=== PATIENT | female | born 2000 | race Caucasian/White ===

== ENCOUNTER 2019-05-14 14:52 | Inpatient (IN) | payer OTHER ==
[~2019-05-14] VITALS: Ht 157.5 cm; Wt 66.0 kg
[2019-05-14] VITALS (10 sets, daily range): BP systolic 100–144; BP diastolic 58–93
[2019-05-14] MEDS ORDERED: PRENTAB9 PO (16:02)
[2019-05-14] MEDS ORDERED: LR 1,000 ML IV SCH (16:17)
[2019-05-14] MEDS ORDERED: LACTATED RINGER'S 1000 ML IV STA (16:17)
--- NOTE | 2019-05-14 16:46 | HPEPDOC ---
Obstetrical History & Physical General Date of Admission May 14, 2019 at 16:21 History of Present Illness 19yo G1 at 39w3d (LAQUITA 06Aug by 7wk US) presents c/o abominal tightening associated with upper and lower abd pain and pressure throughout the day. Will have intermittent pelvic pressure and shooting pelvic pain, initially releaved with BM but not contintuing. Denies vaginal bleeding, LOF. +FM. Denies MAST, vision changes, RUQ pain. 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 Past Medical History Medical History asthma, anxiety Surgical History: Denies/None Family History Significant Family History: No pertinent family hx Social History Marital Status: Psychosocial History: Anxiety * Smoker: non-smoker Alcohol: Denies Drugs: denies Abuse Violence Screening Have you been hit/kicked/slapp: No Have you been sexually assault: No Imunizations Tdap status: current Influenza Status: current Allergies Coded Allergies: Penicillins (Verified Allergy, Intermediate, HIVES AND SWELLING, 05/14/19) Medications Scheduled No.137/Iron/Folic Acd ( Vitamin Tablet) 1 Each Tablet, 1 TAB PO DAILY Physical Examination Physical Examination GENERAL: Alert and oriented times three. ABDOMEN: Gravid and non-tender to touch. FETUS: Is vertex (VTX) by sterile vaginal examination (SVE) EXTREMITIES: No edema. Pertinent Laboratoy Data Blood Type: A- RBC Antibody Screen: Negative HIV: Negative Hepatitis B: Negative Rapid Plasma Reagin: Nonreactive Rubella: Immune Varicella: Immune Chlamydia/Gonorrhea: Negative Group B Streptococcus: Negative Cystic Fibrosis: Negative Glucose Tolerance Test: 86 Anatomy Ultrasound Ultrasound Date: Dec 30, 2018 Placenta Location: Posterior Normal Anatomy: Yes Placenta Previa: No Estimated Weight (grams): 346 Steroid Therapy Steroid Therapy: No Vaginal Examination Dilation: 4 cm Effacement: 90% Station: -1 Cervical Consistency: Soft Cervical Position: Middle Presentation: Cephalic presentation Position: Vertex (occiput) Assessment Heart Rate (FHR): 120 Variability: Moderate Accelerations: Positive Decelerations: None Tocometer Contractions: Yes Frequency: regular, every 3-7 min. Duration: greater than 60 seconds Strength: palpated as moderate Multi-drug resistant Organism: No history of MDRO Assessment/Plan Assessment 19yo G1 at 39w3d (LAQUITA 06Aug by 7wk US) being admitted in latent labor with newly diagnosed GHTN. No e/o pre-e. Pt amenable to augmentation if needed for her GHTN. NST reactive, regular CTX. Cephalic by exam, EFW 3000g. GBS neg, A neg (received routine rhogam Jan). PMH asthma. Plan Admit and orient. Registered Sales Assistant and consent. Diet: clear liquid. Group B Streptococcus (GBS) negative. Labs and intravenous (IV) per unit protocol. Lactated Ringers (LR): at 125 mL/hr. Anticipate normal spontaneous delivery (). Pain control as desired MD MAGDIEL Ivy TONI M. MD May 14, 2019 16:46
[2019-05-14 17:12] LABS: HEMATOCRIT 34.7 % (36.0-47.0); HEMOGLOBIN 11.5 g/dl (12.0-15.5); MEAN CORPUSCULAR HGB CONC 33.1 g/dl (32.0-36.5); MEAN CORPUSCULAR VOLUME 84.6 fl (80.0-96.0); PLATELET COUNT, AUTOMATED 253 10^3/uL (150-450); WHITE BLOOD COUNT 12.8 10^3/uL (4.0-10.0)
[2019-05-14 17:39] LABS: ALT/SGPT 19 U/L (12-78); BILIRUBIN,TOTAL 0.4 MG/DL (0.2-1.0); CREATININE FOR GFR 0.77 MG/DL (0.55-1.30); LDH LACTATE DEHYDROGENASE 181 U/L (84-246); URIC ACID 4.2 MG/DL (2.6-6.0)
[2019-05-14 17:40] LABS: TOTAL PROTEIN,RANDOM URINE 48.8 MG/DL (0.0-12.0)
[2019-05-14] MEDS ORDERED: OXYTOCIN DRIP 30 UNITS in APPROPRIATE DILUENT 1 EA IV SCH (19:45)
[2019-05-14] MEDS ORDERED: FENTANYL 2MCG/ML ROPIVACAINE 0.2% IN 0.9% NACL 100ML IVBAG As Ordered ONE (23:55)
[2019-05-15] VITALS (23 sets, daily range): BP systolic 105–137; BP diastolic 55–90
[2019-05-15] MEDS ORDERED: REFRIGERATOR IV KEYS XX PRN (01:00)
[2019-05-15] MEDS ORDERED: NALOXONE INJ 0.4 MG/1 ML VIAL (J2310) IV PRN (01:00)
[2019-05-15] MEDS ORDERED: EPIDURAL/PCA KEYS XX PRN (01:00)
[2019-05-15] MEDS ORDERED: FENTANYL/ROPIVACAINE/NACL BAG 100 ML EPIDURAL SCH (01:00)
[2019-05-15] MEDS ORDERED: ONDANSETRON 4MG/2ML VIAL (J2405) IV PRN ×2 (01:00→03:00)
[2019-05-15] MEDS ORDERED: ePHEDrine SULFATE 25 MG/5 ML(5MG/ML) SYRINGE IV PRN (01:00)
[2019-05-15] MEDS ORDERED: diphenhydrAMINE INJ 50MG/ML VIAL (J1200) IV PRN (01:00)
[2019-05-15] MEDS ORDERED: EPIDURAL COMMENT XX SCH (01:00)
[2019-05-15] MEDS ORDERED: METHYLERGONOVINE MALEATE 0.2 MG TAB PO PRN (03:00)
[2019-05-15] MEDS ORDERED: DOCUSATE SODIUM 100 MG CAP PO PRN (03:00)
[2019-05-15] MEDS ORDERED: IBUPROFEN 600 MG TAB PO PRN (03:00)
[2019-05-15] MEDS ORDERED: ACETAMINOPHEN 500 MG TAB PO PRN (03:00)
[2019-05-15] MEDS ORDERED: OXYTOCIN DRIP 30 UNITS in APPROPRIATE DILUENT 1 EA IV ONE (03:00)
[2019-05-15] MEDS ORDERED: DIBUCAINE 1% OINTMENT 30GM TOP PRN (03:00)
[2019-05-15] MEDS ORDERED: RHOGAM 300 MCG (1500 IU) INJ (J2790) IM SCH (03:00)
[2019-05-15] MEDS ORDERED: ACETAMINOPHEN TAB 650MG DOSE (2X325MG) PO PRN (03:00)
[2019-05-15] MEDS ORDERED: MEASLES,MUMPS,RUBELLA VACCINE INJ (MMR-II) (90707) SC SCH (03:00)
[2019-05-15] MEDS: PRENATAL VITAMINS CHEWABLE TABLET PO SCH (08:18)
--- NOTE | 2019-05-15 11:42 | DN ---
DATE OF DELIVERY: 05/15/2019 PREDELIVERY DIAGNOSIS: 39 weeks gestation, labor. POSTDELIVERY DIAGNOSIS: Delivered. PROCEDURE: Spontaneous vaginal delivery. FITNESS CONSULTANT: Dr. Olegario Youssef ANESTHESIA: Epidural. ESTIMATED BLOOD LOSS: 300 mL. FINDINGS: 7 pound 14 ounce male , scores 8 and 9. DELIVERY SUMMARY: After 1 hour of second stage of labor, the patient spontaneously delivered a 7 pound 14 ounce male infant, scores 8 and 9, under epidural with anesthesia. There was no nuchal cord. The shoulders delivered with ease. The was handed to the mother. The cord was doubly clamped and cut. Placenta delivered spontaneously and appeared to be intact. The patient received intravenous (IV) Pitocin immediately after delivery of the placenta. There were no vaginal lacerations present. Sponge counts were correct.
[2019-05-15] MEDS: IBUPROFEN 800 MG TAB PO PRN (14:36)
[2019-05-16 06:00] VITALS: BP 106/72
--- NOTE | 2019-05-16 07:06 | IPNPDOC ---
Text Note Date of Service The patient was seen on 05/16/19. NOTE PPD1 status post uncomplicated spontaneous vaginal delivery at 39+3 wks yesterday morning, no delivery complications or lacerations. She has been ambulating, voiding spontaneously without issue and tolerating regular diet. Breast feeding well and bonding appropriately. Reports lochia is light. Denies any pain or concerns. VITAL SIGNS: Within normal limits, afebrile. Alert and oriented times three. Abdomen: Fundus firm at U-2. Soft, NTTP. A/P: 19 y/o G1 now P1001, PPD 1, stable and doing well. PLAN: 1. Likely d/c tomorrow AM. 2. Tylenol and Motrin for pain. 3. Encourage breast feeding on demand and ambulation. 4. Routine PP Care VS,Fishbone, I+O VS, Fishbone, I+O Vital Signs Date Time Temp Pulse Resp B/P (MAP) Pulse Ox O2 Delivery O2 Flow Rate FiO2 05/16/19 06:00 97.1 73 16 106/72 (83) 97 SESSIONS,TERI Bailey MD May 16, 2019 07:06
[2019-05-16] MEDS: PRENATAL VITAMINS CHEWABLE TABLET PO SCH (09:34)
[2019-05-16] MEDS: IBUPROFEN 800 MG TAB PO PRN ×2 (09:55→22:04)
[2019-05-16 18:00] VITALS: BP 115/67
--- NOTE | 2019-05-17 05:53 | IPNPDOC ---
Text Note Date of Service The patient was seen on 05/17/19. NOTE PPD1 status post uncomplicated spontaneous vaginal delivery at 39+3 wks yesterday morning, no delivery complications or lacerations. She has been ambulating, voiding spontaneously without issue and tolerating regular diet. Breast feeding well and bonding appropriately. Reports lochia is light. Denies any pain or concerns. VITAL SIGNS: Within normal limits, afebrile. Alert and oriented times three. Abdomen: Fundus firm at U-2. Soft, NTTP. A/P: 19 y/o G1 now P1001, PPD 1, stable and doing well. PLAN: 1. Likely d/c today 2. Lanolin Motrin for d/c meds. 3. Encourage breast feeding and ambulation. 4. Routine PP Care VS,Fishbone, I+O VS, Fishbone, I+O Vital Signs Date Time Temp Pulse Resp B/P (MAP) Pulse Ox O2 Delivery O2 Flow Rate FiO2 05/16/19 18:00 98.2 86 18 115/67 (83) 05/16/19 06:00 97 SESSIONS,TERI Bailey MD May 17, 2019 05:53
--- NOTE | 2019-05-17 06:01 | DS.PDOC ---
Discharge Summary General Date of Admission May 14, 2019 at 16:21 Date of Discharge [id number] Discharge Summary ADMITTING DIAGNOSES: PROM DISCHARGE DIAGNOSES: Same, HOSPITAL COURSE: Uncomplicated, labor. Uncomplicated . Uncomplicated course. DISCHARGE MEDICATIONS: Motrin/Lanolin/PNV INSTRUCTIONS/ACTIVITY: Nothing in the vagina for 6 weeks. DISCHARGE CONDITION: Stable Sessions Vital Signs/I&Os Vital Signs Date Time Temp Pulse Resp B/P (MAP) Pulse Ox O2 Delivery O2 Flow Rate FiO2 05/16/19 18:00 98.2 86 18 115/67 (83) 05/16/19 06:00 97 Discharge Medications Scheduled No.137/Iron/Folic Acd ( Vitamin Tablet) 1 Each Tablet, 1 TAB PO DAILY, (Reported) Allergies Coded Allergies: Penicillins (Verified Allergy, Intermediate, HIVES AND SWELLING, 05/14/19) RADHA,TERI Bailey MD May 17, 2019 06:01
[2019-05-17] MEDS ORDERED: ACET1TAB55 PO (06:02)
[2019-05-17] MEDS ORDERED: IBUP80TA PO (06:02)
[2019-05-17 06:25] VITALS: BP 109/55
[2019-05-17] MEDS: PRENATAL VITAMINS CHEWABLE TABLET PO SCH (08:33)
== END 2019-05-17 10:40 | disposition home or self-care (01) | DRG 807 ==
LOC: M LDO 14:52 → M LDI 16:21 → M OBS 05-15 05:05
PROVIDERS: ADMIT General Practice; ATTEND General Practice
PROC: 10E0XZZ Delivery of Products of Conception, External Approach (ICD-10-PCS; principal; 2019-05-15)
DX: O13.4 Gestational [pregnancy-induced] hypertension without significant proteinuria, complicating childbirth (principal); Z37.0 Single live birth; Z3A.39 39 weeks gestation of pregnancy

== ENCOUNTER 2019-12-25 15:55 | Emergency (ER) | payer OTHER ==
[~2019-12-25] VITALS: Ht 157.5 cm; Wt 55.4 kg
[~2019-12-25 15:55] MED LIST: ACET1TAB55 PO; IBUP80TA PO; PRENTAB9 PO
[2019-12-25 16:33] LABS: BASO # 0.1 10^3/uL (0.0-0.2); BASO % 0.8 % (0.0-1.0); EOS # 0.1 10^3/uL (0.0-0.5); HEMATOCRIT 39.2 % (36.0-47.0); LYMPH # 2.1 10^3/uL (1.5-5.0); MEAN CORPUSCULAR HEMOGLOBIN 29.5 pg (27.0-33.0); MEAN CORPUSCULAR HGB CONC 33.2 g/dl (32.0-36.5); MEAN CORPUSCULAR VOLUME 88.9 fl (80.0-96.0); MONO # 0.8 10^3/uL (0.0-0.8); MONO % 12.8 % (0.0-5.0); NEUTROPHILS # 3.1 10^3/uL (1.5-8.5); NEUTROPHILS % 50.2 % (36.0-66.0); PLATELET COUNT, AUTOMATED 231 10^3/uL (150-450); RED BLOOD COUNT 4.41 10^6/uL (4.00-5.40); WHITE BLOOD COUNT 6.2 10^3/uL (4.0-10.0)
[2019-12-25 16:58] LABS: ALBUMIN 3.7 GM/DL (3.2-5.2); ALT/SGPT 16 U/L (12-78); BILIRUBIN,DIRECT < 0.1 MG/DL (0.0-0.2); BILIRUBIN,TOTAL 0.2 MG/DL (0.2-1.0); BLOOD UREA NITROGEN 11 MG/DL (7-18); CALCIUM LEVEL 9.2 MG/DL (8.5-10.1); CARBON DIOXIDE LEVEL 30 MEQ/L (21-32); CHLORIDE LEVEL 108 MEQ/L (98-107); CREATININE FOR GFR 0.64 MG/DL (0.55-1.30); GLUCOSE, FASTING 74 MG/DL (70-100); LIPASE 115 U/L (73-393); POTASSIUM SERUM 3.5 MEQ/L (3.5-5.1); SODIUM LEVEL 141 MEQ/L (136-145); TOTAL PROTEIN 6.9 GM/DL (6.4-8.2)
[2019-12-25 17:23] LABS: APPEARANCE, URINE HAZY (CLEAR); BILIRUBIN, URINE AUTO NEGATIVE (NEGATIVE); BLOOD, URINE BLOOD NEGATIVE (NEGATIVE); COLOR, URINE YELLOW (YELLOW); GLUCOSE, URINE (UA) AUTO NEGATIVE (NEGATIVE); KETONE, URINE AUTO NEGATIVE (NEGATIVE); LEUKOCYTE ESTERASE, URINE AUTO NEGATIVE (NEGATIVE); NITRITE, URINE AUTO NEGATIVE (NEGATIVE); PROTEIN, URINE AUTO NEGATIVE (NEGATIVE); SPECIFIC GRAVITY URINE AUTO 1.023 (1.002-1.035); UROBILINOGEN, URINE AUTO 0.2 mg/dL (0.0-2.0)
[2019-12-25 17:24] LABS: BACTERIA, URINE AUTO 1+ (NEGATIVE); MUCUS, URINE SMALL (NEGATIVE); RBC, URINE AUTO 2 /HPF (0-3); SQUAMOUS EPITHELIAL CELL UR AU 6 /HPF (0-6); WBC, URINE AUTO 2 /HPF (0-3)
--- NOTE | 2019-12-25 17:56 | REPVR ---
PROCEDURE INFORMATION: Exam: US Pelvis Complete, Transabdominal and US Pelvis, Transvaginal and US Duplex Artery and Vein, Ovaries, Complete Exam date and time: 12/25/2019 5:42 PM Age: 19 years old Clinical indication: Pelvic pain; Additional info: Pelvic cramping TECHNIQUE: Imaging protocol: Real-time transabdominal and transvaginal pelvic ultrasound (complete) with image documentation. Transvaginal imaging was used for better evaluation of the endometrium and adnexa. Real-time duplex ultrasound scan of the arterial and venous flow of the ovaries with B-mode, color Doppler flow and spectral waveform analysis. COMPARISON: No relevant prior studies available. FINDINGS: Uterus/cervix: The anteverted uterus measures 7.8 x 3.4 x 5.4 cm, as best visualized transvaginally. It is homogeneous in echotexture, without demonstrated lesion. The endometrium measures 4.5 mm in thickness. Right adnexa: The right ovary measures 2.6 x 3.2 x 2.4 cm and contains multiple follicles. There is internal arterial and venous flow to the ovary. Peak systolic velocity 12.1 cm/s, end-diastolic velocity 6.5 cm/s, resistive index 0.46. Left adnexa: The left ovary measures 4.4 x 4.6 x 1.9 cm, as seen transvaginally only. It contains a 2.3 x 2.6 x 1.1 cm complex cyst which appears to have a daughter cyst and/or mural thickening. There is internal arterial and venous flow to the ovary. Peak systolic velocity 5.5 cm/s, end-diastolic velocity 3.4 cm/s, resistive index 0.38. Free fluid: No significant free fluid is demonstrated. Bladder: The urinary bladder measures 3.9 x 1.4 x 3.1 cm. IMPRESSION: 1. Anteverted but otherwise unremarkable uterus. 2. 2.6 cm complex left ovarian cyst with a daughter cyst and/or mural thickening. Consider surgical evaluation or MRI, or otherwise follow-up in 6-12 weeks. 3. Internal flow to both ovaries, without torsion. Electronically signed by: Anton Griffin On 12/25/2019 17:56:01 PM
[2019-12-25 18:20] VITALS: BP 116/55
--- NOTE | 2019-12-26 17:09 | ED PDOC ---
Post-Departure Follow-Up ft carey fp faxed formal report of pelvic us for fu Joe Ricks MD Dec 26, 2019 17:09
== END 2019-12-25 18:30 | disposition home or self-care (01) ==
LOC: M ED 15:55
DX: N83.202 Unspecified ovarian cyst, left side (principal); Z88.0 Allergy status to penicillin; Z79.899 Other long term (current) drug therapy

== ENCOUNTER → 2020-05-27 | Emergency (ER) | payer OTHER ==
[~2020-05-27] MED LIST changes: +ACETAMINOPHEN 500 MG TAB As Ordered ONE; +ONDANSETRON 4MG/2ML VIAL As Ordered ONE; +ONDANSETRON 4MG/2ML VIAL ONE
[2020-07-10 12:52] LABS: APPEARANCE, URINE MANUAL CLEAR (CLEAR); BILIRUBIN, URINE MANUAL NEGATIVE (NEGATIVE); BLOOD URINE MANUAL NEGATIVE (NEGATIVE); COLOR, URINE MANUAL YELLOW (YELLOW); GLUCOSE, URINE (UA) MANUAL NEGATIVE (NEGATIVE); KETONE, URINE MANUAL NEGATIVE (NEGATIVE); LEUKOCYTE ESTERASE, URINE MAN NEGATIVE (NEGATIVE); NITRITE, URINE MANUAL NEGATIVE (NEGATIVE); PH,URINE MAN 6.5 UNITS (5.0 - 7.0); PROTEIN, URINE MANUAL NEGATIVE (NEGATIVE); UROBILINOGEN, URINE MANUAL NORMAL (NORMAL)
[2020-07-10 20:46] LABS: BASO # 0.1 10^3/uL (0.0-0.2); BASO % 0.4 % (0.0-1.0); EOS # 0.2 10^3/uL (0.0-0.5); EOS % 1.6 % (0.0-3.0); HEMATOCRIT 35.4 % (36.0-47.0); LYMPH # 2.8 10^3/uL (1.5-5.0); LYMPH % 19.5 % (24.0-44.0); MEAN CORPUSCULAR HEMOGLOBIN 29.6 pg (27.0-33.0); MEAN CORPUSCULAR HGB CONC 33.9 g/dl (32.0-36.5); MEAN CORPUSCULAR VOLUME 87.2 fl (80.0-96.0); MONO # 0.9 10^3/uL (0.0-0.8); MONO % 6.6 % (0.0-5.0); NEUTROPHILS # 10.2 10^3/uL (1.5-8.5); NEUTROPHILS % 71.5 % (36.0-66.0); PLATELET COUNT, AUTOMATED 239 10^3/uL (150-450); RED BLOOD COUNT 4.06 10^6/uL (4.00-5.40); WHITE BLOOD COUNT 14.3 10^3/uL (4.0-10.0)
[2020-08-20 11:48] LABS: BLOOD UREA NITROGEN 19 MG/DL (7-18); CALCIUM LEVEL 8.9 MG/DL (8.5-10.1); CARBON DIOXIDE LEVEL 25 MEQ/L (21-32); CHLORIDE LEVEL 108 MEQ/L (98-107); CREATININE FOR GFR 0.74 MG/DL (0.55-1.30); GLOMERULAR FILTRATION RATE > 60.0 (>60); GLUCOSE, FASTING 87 MG/DL (70-100); HCG, SERUM QUANTITATIVE 78672 MIU/ML; POTASSIUM SERUM 3.9 MEQ/L (3.5-5.1); SODIUM LEVEL 139 MEQ/L (136-145)
== END | disposition home or self-care (01) ==
LOC: M ED 21:27
DX: O26.891 Other specified pregnancy related conditions, first trimester (principal); Z79.899 Other long term (current) drug therapy; Z88.0 Allergy status to penicillin; Z3A.12 12 weeks gestation of pregnancy
CPT/HCPCS: 76801; 80048; 81002; 84702; 85025; 86901; 87086; 93976; 96374; 99284; J2405

== ENCOUNTER 2020-05-28 11:21 | Emergency (ER) | payer OTHER ==
[~2020-05-28 11:21] MED LIST changes: -ACETAMINOPHEN 500 MG TAB As Ordered ONE; -ONDANSETRON 4MG/2ML VIAL As Ordered ONE; -ONDANSETRON 4MG/2ML VIAL ONE
[2020-05-28] MEDS ORDERED: ONDANSETRON 4MG/2ML VIAL As Ordered ONE (12:34)
[2020-05-28] MEDS ORDERED: ONDANSETRON 4MG/2ML VIAL ONE (12:34)
[2020-07-10 10:43] LABS: APPEARANCE, URINE MANUAL HAZY (CLEAR); BILIRUBIN, URINE MANUAL NEGATIVE (NEGATIVE); BLOOD URINE MANUAL NEGATIVE (NEGATIVE); COLOR, URINE MANUAL YELLOW (YELLOW); GLUCOSE, URINE (UA) MANUAL NEGATIVE (NEGATIVE); KETONE, URINE MANUAL 3+ mg/dL (NEGATIVE); LEUKOCYTE ESTERASE, URINE MAN TRACE (NEGATIVE); NITRITE, URINE MANUAL NEGATIVE (NEGATIVE); PH,URINE MAN 5.5 UNITS (5.0 - 7.0); PROTEIN, URINE MANUAL TRACE mg/dL (NEGATIVE); SPECIFIC GRAVITY,URINE MANUAL 1.025 (1.002-1.035); UROBILINOGEN, URINE MANUAL NORMAL (NORMAL)
[2020-07-10 10:44] LABS: AMORPHOUS SEDIMENT, URINE SMALL AMOUNT (NEGATIVE); BACTERIA, URINE SMALL AMOUNT; HYALINE CAST, URINE NONE SEEN /lpf (0-1); MUCUS, URINE LARGE AMOUNT (NEGATIVE); RBC, URINE 0-1 /hpf (0-3); SQUAMOUS EPITHELIAL CELL URINE MOD AMOUNT /hpf (SMALL AMT)
[2020-07-10 10:45] LABS: INR 0.92; PROTHROMBIN TIME 12.6 SECONDS (12.5-14.3)
[2020-07-10 22:32] LABS: HEMATOCRIT 38.5 % (36.0-47.0); HEMOGLOBIN 13.4 g/dl (12.0-15.5); MEAN CORPUSCULAR HEMOGLOBIN 30.2 pg (27.0-33.0); MEAN CORPUSCULAR HGB CONC 34.8 g/dl (32.0-36.5); MEAN CORPUSCULAR VOLUME 86.9 fl (80.0-96.0); PLATELET COUNT, AUTOMATED 217 10^3/uL (150-450); RED BLOOD COUNT 4.43 10^6/uL (4.00-5.40); WHITE BLOOD COUNT 9.8 10^3/uL (4.0-10.0)
== END 2020-05-28 14:30 | disposition home or self-care (01) ==
LOC: M ED 11:21
DX: O26.891 Other specified pregnancy related conditions, first trimester (principal); N83.11 Corpus luteum cyst of right ovary; Z88.0 Allergy status to penicillin; Z3A.11 11 weeks gestation of pregnancy
CPT/HCPCS: 76857; 80048; 81000; 85027; 85610; 96361; 96374; 99283; J2405

== ENCOUNTER 2020-10-30 21:54 | Outpatient (CLI) | payer OTHER ==
[~2020-10-30] VITALS: Ht 157.5 cm; Wt 61.9 kg
[2020-10-30 22:17] VITALS: BP 123/71
[2020-10-30] MEDS ORDERED: PRENTAB9 PO (22:30)
== END 2020-10-30 23:55 | disposition home or self-care (01) ==
LOC: M LDO 21:54
PROVIDERS: ATTEND Obstetrics & Gynecology
DX: O26.893 Other specified pregnancy related conditions, third trimester (principal); Z3A.34 34 weeks gestation of pregnancy
CPT/HCPCS: 59025; G0378; G0463

== ENCOUNTER 2020-11-15 15:34 | Outpatient (CLI) | payer OTHER ==
[~2020-11-15] VITALS: Ht 157.5 cm; Wt 63.6 kg
--- NOTE | 2020-11-15 16:47 | IPNPDOC ---
Obstetrical Progress Note Date of Service Nov 15, 2020 Subjective Pt presenting to triage with low pelvic and back pain for the last several weeks. States pain occasionally feels like it is shooting. Assessment Heart Rate (FHR): 135 Variability: Moderate Accelerations: Positive Decelerations: None Heart Rate Tracing: Category I Tocometer Contractions: Yes Frequency: irregular, greater than 15 min/apart Duration: greater than 60 seconds Strength: palpated as mild, resting tone palp/soft Sterile Vaginal Examination Dilation: 3 cm Effacement (%): 50% Station: -3 Cervical Consistency: Medium Cervical Position: Posterior Postion/Presentation: Cephalic presentation Assessment and Plan Age: 20 : 2 Term: 1 Pre-term: 0 Abortions: 0 Livin EGA at Admission: 36 Status: Reassuring Additional Comments Pt pain is consistent with pelvic pain and round ligament pain. Provided patient education on comfort measures, stretching, exercises, appropriate body mechanics, use of maternity support belt, safe use of medications, labor precautions and reasons to return for care with expressed understanding. SHALINI EPSTEIN CNM Nov 15, 2020 16:47
== END 2020-11-15 16:45 | disposition home or self-care (01) ==
LOC: M LDO 15:34
PROVIDERS: ATTEND Registered Nurse
DX: O26.899 Other specified pregnancy related conditions, unspecified trimester (principal); R10.2 Pelvic and perineal pain; Z3A.01 Less than 8 weeks gestation of pregnancy
CPT/HCPCS: 59025; G0378; G0463

== ENCOUNTER 2020-11-17 00:21 | Outpatient (CLI) | payer OTHER ==
[~2020-11-17] VITALS: Ht 157.5 cm; Wt 69.2 kg
[2020-11-17 00:39] VITALS: BP 112/61
[2020-11-17 01:19] VITALS: BP 110/70
--- NOTE | 2020-11-17 01:28 | IPNPDOC ---
Obstetrical Progress Note Date of Service Nov 17, 2020 Subjective 20yo at 36+4 presents for contractions. She reports they are irregular. She denied n/v/d, cp, sob, yanez, visual changes, f/c, vaginal bleeding, dc, urinary sx, lof, decresed fm. Objective Vital Signs Date Time Temp Pulse Resp B/P (MAP) Pulse Ox O2 Delivery O2 Flow Rate FiO2 11/17/20 01:19 83 110/70 (83) 11/17/20 00:39 98.8 Assessment Heart Rate (FHR): 135 Variability: Moderate Accelerations: Positive Decelerations: None Heart Rate Tracing: Category I Tocometer Contractions: Yes Frequency: irregular Sterile Vaginal Examination Dilation: 3 cm Effacement (%): 50% Station: -3 Cervical Consistency: Medium Cervical Position: Middle Postion/Presentation: Cephalic presentation (by US) Assessment and Plan Status: Reassuring Additional Comments 20yo at 36+4 presents for contractions. She reports they are irregular. CAT I tracing reactive, VS normal. Cephalic by US. SVE 3cm and unchanged from her prior exam thus labor is unlikley at this time. - routine OB return precautions - follow up at next CHAZ EDWARDS DO Nov 17, 2020 01:28
== END 2020-11-17 01:30 | disposition home or self-care (01) ==
LOC: M LDO 00:21
PROVIDERS: ATTEND Obstetrics & Gynecology
DX: O26.893 Other specified pregnancy related conditions, third trimester (principal); Z3A.36 36 weeks gestation of pregnancy
CPT/HCPCS: 59025; 76815; G0378; G0463

== ENCOUNTER 2020-11-22 14:50 | Outpatient (CLI) | payer OTHER ==
[~2020-11-22] VITALS: Ht 157.5 cm; Wt 62.9 kg
[2020-11-22 15:07] VITALS: BP 121/81
[2020-11-22 16:22] VITALS: BP 112/76
[2020-11-22 17:20] VITALS: BP 124/73
== END 2020-11-22 18:13 | disposition home or self-care (01) ==
LOC: M LDO 14:50
PROVIDERS: ATTEND Obstetrics & Gynecology
DX: O47.1 False labor at or after 37 completed weeks of gestation (principal); Z3A.37 37 weeks gestation of pregnancy
CPT/HCPCS: 59025; G0378; G0463

== ENCOUNTER 2020-12-02 22:47 | Inpatient (IN) | payer OTHER ==
[~2020-12-02] VITALS: Ht 160 cm; Wt 64.5 kg
[2020-12-02 22:56] VITALS: BP 138/83
[2020-12-02] MEDS ORDERED: OXYTOCIN 30 UNITS IN 0.9% NaCl 500ML IV BAG (J2590) As Ordered ONE (23:13)
--- OUTSIDE RECORDS SUMMARY | 2020-12-02 23:14 | CCD ---
Author Author [facility] Organization [facility] Address Unknown Phone Unavailable Support Name Relationship Address Phone Nigel ARVIZU Next Of Kin [id number] [place], [place] [id number] [employer] Next Of Kin [address] [place] [address] Unavailable RIDINGS, CHRISTOPHER Next Of Kin [address] [place], [place] [id number] BRIEN ARVIZU Next Of Kin [address] [place], [place] [id number] [place] Next Of Kin Unknown Unavailable Re-disclosure Warning The records that you are about to access may contain information from federally-assisted alcohol or drug abuse programs. If such information is present, then the following federally mandated warning applies: This information has been disclosed to you from records protected by federal confidentiality rules (42 CFR part 2). The federal rules prohibit you from making any further disclosure of this information unless further disclosure is expressly permitted by the written consent of the person to whom it pertains or as otherwise permitted by 42 CFR part 2. A general authorization for the release of medical or other information is NOT sufficient for this purpose. The Federal rules restrict any use of the information to criminally investigate or prosecute any alcohol or drug abuse patient.The records that you are about to access may contain highly sensitive health information, the redisclosure of which is protected by Article 27-F of the [facility] Public Health law. If you continue you may have access to information: Regarding HIV / AIDS; Provided by facilities licensed or operated by the [facility] Office of Mental Health; or Provided by the [facility] Office for People With Developmental Disabilities. If such information is present, then the following [facility] mandated warning applies: This information has been disclosed to you from confidential records which are protected by state law. State law prohibits you from making any further disclosure of this information without the specific written consent of the person to whom it pertains, or as otherwise permitted by law. Any unauthorized further disclosure in violation of state law may result in a fine or senior living sentence or both. A general authorization for the release of medical or other information is NOT sufficient authorization for further disc losure. Encounters Encounter Providers Location Date Indications Data Source(s ) Outpatient 01/19/2020 04:59:00 AM EDT [facility] Insurance Providers Payer name Policy type / Coverage type Policy ID Covered green party ID Covered green party's relationship to marte Policy Marte Plan Information [facility] [id number] [facility] [id number] [facility] [id number] S [id number] SELF PAY O UNAVAILABLE P [facility] - O/P [id number]
[2020-12-02] MEDS ORDERED: OXYTOCIN DRIP 30 UNITS in IV 1 EA IV SCH (23:40)
[2020-12-02 23:43] VITALS: BP 118/65
[2020-12-02] MEDS ORDERED: ACETAMINOPHEN 500 MG TAB PO PRN (23:45)
[2020-12-02] MEDS ORDERED: DOCUSATE SODIUM 100MG CAPSULE PO PRN (23:45)
[2020-12-02] MEDS ORDERED: IBUPROFEN 600MG TAB PO PRN (23:45)
[2020-12-02] MEDS ORDERED: RHOGAM 300 MCG (1500 IU) INJ (J2790) IM SCH (23:45)
[2020-12-02] MEDS ORDERED: DIBUCAINE 1% OINTMENT 30GM TOP PRN (23:45)
[2020-12-02] MEDS ORDERED: ACETAMINOPHEN TAB 650MG DOSE (2X325MG) PO PRN (23:45)
[2020-12-02 23:51] LABS: CORD GAS ABE A -1.9; CORD GAS HCO3 A 23.7 MEQ/L; CORD GAS HCO3 V 20.4 MEQ/L; CORD GAS O2 SAT V 51.5 %; CORD GAS PCO2 A 43.4 mmHg; CORD GAS PCO2 V 30.1 mmHg; CORD GAS PH A 7.355 UNITS; CORD GAS PH V 7.449 UNITS; CORD GAS PO2 A 10.8 mmHg; CORD GAS PO2 V 19.2 mmHg; CORD GAS SBC A 20.7 MEQ/L; CORD GAS SBC V 21.4 MEQ/L; CORD GAS TCO2 V 21.3 MEQ/L
--- NOTE | 2020-12-02 23:53 | HPEPDOC ---
Obstetrical History & Physical General Date of Admission Dec 02, 2020 at 23:06 History of Present Illness 20yo at 38+5 presented to L+D in active labor and precipitously delivere d, she SROMed during pushing. She endorsed nausea. She denied v/d, cp, sob, yanez visual changes, f/c, vb, lof, decreased fm. 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 Past Medical History Medical History GERD Surgical History: Denies/None Family History Significant Family History: No pertinent family hx Social History Marital Status: Family situation: Spouse/partner home Psychosocial History: No pertinent psych hx * Smoker: non-smoker Alcohol: Denies Drugs: denies Imunizations Tdap status: current Influenza Status: needs Allergies Coded Allergies: Penicillins (Verified Allergy, Intermediate, HIVES AND SWELLING, 05/14/19) Medications Scheduled No.137/Iron/Folic Acd ( Vitamin Tablet) 1 Each Tablet, 1 TAB PO DAILY Physical Examination Physical Examination GENERAL: Alert and oriented times three. BREAST: . ABDOMEN: Gravid and non-tender to touch. FETUS: Is vertex (VTX) by sterile vaginal examination (SVE), fetus is vertex (VTX) by ultrasound HEART RATE: Regular rate and rhythm. LUNGS: Clear to auscultation (CTA). EXTREMITIES: No edema. No clonus. Laboratory Data 24H LABS Laboratory Tests 2 12/02/20 23:07: Serology Scanned Report Hepatitis B Testing Urine Culture: No Growth Pertinent Laboratoy Data Blood Type: A- RBC Antibody Screen: Negative HIV: Negative Hepatitis B: Negative Rapid Plasma Reagin: Nonreactive Rubella: Immune Varicella: Immune Chlamydia/Gonorrhea: Negative Group B Streptococcus: Positive Quad Screen Test: Declined Cystic Fibrosis: Declined Glucose Tolerance Test: 89 Anatomy Ultrasound Placenta Location: Anterior Normal Anatomy: Yes Vaginal Examination Dilation: complete Station: +3 Cervical Consistency: Soft Cervical Position: Anterior Presentation: Cephalic presentation (by US) Assessment Heart Rate (FHR): 130 Variability: Moderate Accelerations: Positive Decelerations: None Tocometer Contractions: Yes Frequency: regular Multi-drug resistant Organism: No history of MDRO Assessment/Plan Assessment 20yo at 38+5 presented to L+D in active labor and precipitously delivered, she SROMed during pushing. CAT I tracing, reactive. Uncomplicated delivery, see delivery note. Plan Admit and orient. Document Reviewer and consent. Diet: regular Group B Streptococcus (GBS) positive but no time for ppx, peds notified Labs and intravenous (IV) per unit protocol. Saline lock IV Routine PPC Sending admit labs CHAZ ROJAS DO Dec 02, 2020 23:53
[2020-12-02 23:59] VITALS: BP 125/76
[2020-12-03] VITALS (7 sets, daily range): BP systolic 123–134; BP diastolic 70–82
--- NOTE | 2020-12-03 | DNPDOC ---
[facility] Delivery Note Delivery Note DATE OF DELIVERY: 12/02/20 PREDELIVERY DIAGNOSIS: 38+5/7 weeks' gestation, active labor, precipitous delivery, GBS positive POST DELIVERY DIAGNOSIS: Delivered. PROCEDURE: Spontaneous vaginal delivery FOSTER CARE CASE MANAGER: Dr. Du Rojas ANESTHESIA: none ESTIMATED BLOOD LOSS: 100 mL. FINDINGS: 3290g, Score 7/9, nuchal cord times 1. DELIVERY SUMMARY Patient is a 20yo at 38+5 presented to L+D in active labor and precipitously delivered, she SROMed during pushing and it was clear. With good maternal effort she delivered the head in the CRISTIANE position and a th ight nuchal cord was noted. It was unable to be passed over the head so it was delivered through. The baby was initially stunned and without cry but had good tone. The cord was clamped x2 and cut by the provider and the baby taken to the warmer for evaluation where crying ensued. Cord gasses and blood were obtained. The placenta was delivered with chase downward traction and was confirmed to be in-tact with a 3 vessel cord. With fundal massage the uterus was firm and bleeding small. There were no lacerations. No complications. Sponge, lap, and needle counts were correct. DU ROJAS DO Dec 03, 2020 00:00
[2020-12-03 00:15] LABS: HEMATOCRIT 39.4 % (36.0-47.0); HEMOGLOBIN 12.7 g/dl (12.0-15.5); MEAN CORPUSCULAR HEMOGLOBIN 27.1 pg (27.0-33.0); MEAN CORPUSCULAR HGB CONC 32.2 g/dl (32.0-36.5); PLATELET COUNT, AUTOMATED 347 10^3/uL (150-450); RED BLOOD COUNT 4.69 10^6/uL (4.00-5.40); WHITE BLOOD COUNT 14.8 10^3/uL (4.0-10.0)
[2020-12-03] MEDS: IBUPROFEN 800 MG TAB PO PRN ×2 (05:47→18:50)
--- NOTE | 2020-12-03 07:33 | IPNPDOC ---
Progress Note Date of Service: Dec 03, 2020 Day#: 1 Progress Note SUBJECT: 20yo PPD1 s/p precipitous uncomplicated a term. She has been ambulating, voiding spontaneously without issue and tolerating regular diet. Breast feeding without issue. Reports lochia is [like a normal period]. Patient is ambulating well. [Reports some cramping with . Denies any pain. Voiding and stooling without difficulty]. APC 1. Rh negative 2. GBS positive 3. close interval OBJECTIVE: VITAL SIGNS: Within normal limits, afebrile. Alert and oriented times three. No increased WOB Heart rate: non-tachy Abdomen: Fundus firm at U-2. Soft, NTTP. [Minimal] lochia per pt ASSESSMENT: 20yo PPD1 s/p precipitous uncomplicated a term. Vitals within normal limits, afebrile, hemodynamically stable with no evidence of infection. PLAN: 1. Discharge to home anticipated tomorrow 2. Tylenol and Motrin for pain. 3. Encourage breast feeding and ambulation. 4. [Minipill] for contraception 5. Routine PP visit in 6 weeks in clinic. 6. Discussed return precautions at length. 7. rhogam ordered VS, I&O, 24H, Fishbone Vital Signs/I&O Vital Signs Date Time Temp Pulse Resp B/P (MAP) Pulse Ox O2 Delivery O2 Flow Rate FiO2 12/03/20 06:00 98.6 73 16 131/78 (95) I&O- Last 24 Hours up to 6 AM 12/03/20 06:00 Output Total 100 ml Balance -100 ml Laboratory Data 24H LABS Laboratory Tests 2 12/02/20 23:07: Serology Scanned Report Hepatitis B Testing 12/02/20 23:10: Nucleated Red Blood Cells % (auto) 0.0, Cord Arterial Blood pH 7.355, Cord Arterial Blood PCO2 43.4, Cord Arterial Blood PO2 10.8, Cord Arterial Blood HCO3 23.7, Cord Arterial Blood Total CO2 25.0, Cord Arterial Blood Base Excess -1.9, Cord Arterial Base Excess (Standard 20.7, Cord Arterial Bld Oxygen Saturation 18.0, Cord Venous Blood pH 7.449, Cord Venous Blood PCO2 30.1, Cord Venous Blood PO2 19.2, Cord Venous Blood HCO3 20.4, Cord Venous Blood Total CO2 21.3, Cord Venous Base Excess (Actual) -2.0, Cord Venous Base Excess (Standard) 21.4, Cord Venous Blood Oxygen Saturation 51.5 CBC/BMP Laboratory Tests 12/02/20 23:10 CHAZ ROJAS DO Dec 03, 2020 07:33
[2020-12-03] MEDS: PRENATAL VITAMINS CHEWABLE TABLET PO SCH (09:41)
--- NOTE | 2020-12-04 05:16 | IPNPDOC ---
Progress Note Date of Service: Dec 04, 2020 Day#: 2 Progress Note SUBJECT: 20yo PPD2 s/p precipitous uncomplicated a term. She has been ambulating, voiding spontaneously without issue and tolerating regular diet. Breast feeding without issue. Reports lochia is less than a normal period]. Patient is ambulating well. [Reports some cramping with . Denies any pain. Voiding and stooling without difficulty]. APC 1. Rh negative 2. GBS positive 3. close interval OBJECTIVE: VITAL SIGNS: Within normal limits, afebrile. Alert and oriented times three. No increased WOB Heart rate: non-tachy Abdomen: Fundus firm at U-2. Soft, NTTP. [Minimal] lochia per pt ASSESSMENT: 20yo PPD2 s/p precipitous uncomplicated a term. Vitals within normal limits, afebrile, hemodynamically stable with no evidence of infection. PLAN: 1. Discharge to home today 2. Tylenol and Motrin for pain. 3. Encourage breast feeding and ambulation. 4. [Minipill] for contraception - ordered for pt to get a escobar 5. Routine PP visit in 6 weeks in clinic. 6. Discussed return precautions at length. 7. rhogam given VS, I&O, 24H, Fishbone Vital Signs/I&O Vital Signs Date Time Temp Pulse Resp B/P (MAP) Pulse Ox O2 Delivery O2 Flow Rate FiO2 12/03/20 18:00 98.1 65 16 123/75 (91) 99 Room Air CHAZ ROJAS DO Dec 04, 2020 05:16
--- NOTE | 2020-12-04 05:24 | OBDS ---
[facility] Obstetrical Discharge Sum. Obstetrical Discharge Summary Date: Dec 04, 2020 A/P, Post Course List any complications SUBJECT: 20yo PPD2 s/p precipitous uncomplicated a term. She has been ambulating, voiding spontaneously without issue and tolerating regular diet. Breast feeding without issue. Reports lochia is less than a normal period]. Patient is ambulating well. [Reports some cramping with . Denies any pain. Voiding and stooling without difficulty]. APC 1. Rh negative 2. GBS positive 3. close interval OBJECTIVE: VITAL SIGNS: Within normal limits, afebrile. Alert and oriented times three. No increased WOB Heart rate: non-tachy Abdomen: Fundus firm at U-2. Soft, NTTP. [Minimal] lochia per pt ASSESSMENT: 20yo PPD2 s/p precipitous uncomplicated a term. Vitals within normal limits, afebrile, hemodynamically stable with no evidence of infection. PLAN: 1. Discharge to home today 2. Tylenol and Motrin for pain. 3. Encourage breast feeding and ambulation. 4. [Minipill] for contraception - ordered for pt to get a escobar 5. Routine PP visit in 6 weeks in clinic. 6. Discussed return precautions at length. 7. rhogam given CHAZ ROJAS DO Dec 04, 2020 05:24
[2020-12-04 05:56] VITALS: BP 127/66
[2020-12-04] MEDS: PRENATAL VITAMINS CHEWABLE TABLET PO SCH (07:50)
== END 2020-12-04 11:17 | disposition home or self-care (01) | DRG 807 ==
LOC: M LDO 22:47 → M LDI 23:06 → M OBS 12-03 01:34
PROVIDERS: ADMIT Obstetrics & Gynecology; ATTEND Obstetrics & Gynecology
PROC: 10E0XZZ Delivery of Products of Conception, External Approach (ICD-10-PCS; principal; 2020-12-02)
DX: O62.3 Precipitate labor (principal); Z37.0 Single live birth; O99.824 Streptococcus B carrier state complicating childbirth; O69.1XX0 Labor and delivery complicated by cord around neck, with compression, not applicable or unspecified; Z3A.38 38 weeks gestation of pregnancy